=== PATIENT | female | born 1985 | race Caucasian/White ===

== ENCOUNTER 2016-11-26 22:25 | Emergency (ER) | payer OTHER ==
[2016-11-26 23:59] VITALS: BP 127/86
--- NOTE | 2016-11-27 00:08 | Emergency Department Report ---
HPI - General Chief Complaint: Extremity Problem,Nontraumatic Time Seen by Provider: 11/27/16 00:06 - [facility] HPI: Patient is a 31-year-old female who presents to ED complaining of left arm pain 1 day. Patient states earlier today she began to feel sharp tingling pain on her anterior proximal arm. Patient states pain was radiating down her hand and fell at the palm of her hands. Patient states no prior injuries trauma or fall to the arm. Patient states certain movements elicits the pain. Patient states she has no pain at the moment. Patient also mentioned she started working out last week she states she worked out for about 3 or 4 days. Patient denies fevers/nausea/vomiting/headache/chills/abdominal pain/shortness of breath/chest pain/headache. ED Past Medical Hx - Past Medical History Previous Medical History?: Yes Additional medical history: Eye issue. Low back pain - Surgical History Past Surgical History?: No - Social History Smoking Status: Former Smoker Substance Use Type: Alcohol - Medications Home Medications: Home Medications Medication Instructions Recorded Confirmed Last Taken Type Cyclobenzaprine HCl [Flexeril 5 MG 5 mg PO TID #20 tab 11/27/16 Unknown Rx TAB] Ibuprofen [Motrin] 800 mg PO Q8HR PRN #30 tablet 11/27/16 Unknown Rx ED Review of Systems ROS: Stated complaint: L ARM PAIN Other details as noted in HPI Constitutional: denies: chills, fever Eyes: denies: eye pain, eye discharge, vision change ENT: denies: ear pain, throat pain, dental pain, hearing loss, epistaxis Respiratory: denies: cough, shortness of breath, wheezing Cardiovascular: denies: chest pain, palpitations Endocrine: no symptoms reported Gastrointestinal: denies: abdominal pain, nausea, vomiting, diarrhea, constipation Genitourinary: denies: urgency, dysuria, discharge Musculoskeletal: denies: back pain, joint swelling, arthralgia Skin: denies: rash, lesions Neurological: denies: headache, weakness, paresthesias, confusion Psychiatric: denies: anxiety, depression Hematological/Lymphatic: denies: easy bleeding, easy bruising, swollen glands Physical Exam - Physical Exam Vital Signs: Vital Signs 11/26/16 11/26/16 11/26/16 22:35 23:08 23:59 Temperature 98.5 F Pulse Rate 76 74 Respiratory 18 16 Rate Blood Pressure 150/124 131/84 127/86 [Right] O2 Sat by Pulse 99 95 Oximetry Physical Exam: GENERAL: Alert and oriented x3, no apparent distress, Normal Gait, atraumatic. HEAD: Head is normocephalic and a-traumatic. EYES: Extra ocular muscles are intact. Pupils are equal, round, and reactive to light and accommodation. EARS: symetrical, atraumatic, non tender, ear canal clear and moderate cerumen, tympanic membrance non inflamed. gross auditory nml bilaterally. NOSE: Nose symetrical, Nontender,Nares appeared normal. MOUTH:Mouth is well hydrated and without lesions. Tonsils nonerythematous or swollen, Uvula midline, Tongue not elevated. Mucous membranes are moist. Posterior pharynx clear, no exudate or lesions. Patent airways. NECK: Supple. Non edematous, No carotid bruits. No lymphadenopathy or thyromegaly. LUNGS: Symetrical with respiration, No wheezing, no rales or crackles, CTAB. BREAST: Symetrical, Supple bilaterally, No Masses, lumps, lesions, ulcerations. HEART: S1, S2 present, regular rate and rhythm without murmur, no rubs, no gallops. ABDOMEN: No organomegaly was noted,Positive bowel sounds, soft, and non- distended. . Nontender to palpation on all Quadrants, NO CVA tenderness. EXTREMITIES/MUSCULOSKELETAL: No cyanosis, clubbing, rash, lesions or edema. Full ROM bilaterally. UE/LE Pulses 2+ bilaterally. LE and UE 5+ strength bilaterally, left arm nontender to palpation. NEUROLOGIC: No focal Deficit, Cranial nerves II through XII are grossly intact. No loss of sensation, No facial droop. SKIN: Warm and dry, No lesions, No ulceration or induration present. ED Course Vital Signs 11/26/16 11/26/16 11/26/16 22:35 23:08 23:59 Temperature 98.5 F Pulse Rate 76 74 Respiratory 18 16 Rate Blood Pressure 150/124 131/84 127/86 [Right] O2 Sat by Pulse 99 95 Oximetry ED Medical Decision Making - Medical Decision Making 31-year-old presents with nonspecific left arm pain. Vital signs stable. Alert and oriented 3. SHe is in no distress. Discussed with patient straining muscle versus radiculopathic pain. Blood pressure taken prior to discharge 127/86. Discussed the patient will follow-up with her physician as referred. Discusses pain continues to follow up with neurologist as referred. Discussed stretching before and after all her accounts for exercises. Critical care attestation.: If time is entered above; I have spent that time in minutes in the direct care of this critically ill patient, excluding procedure time. ED Disposition Clinical Impression: Strain of unspecified muscles, fascia and tendons at forearm level, left arm, initial encounter, Radiculopathy of arm Disposition: DISCHARGED TO HOME OR SELFCARE Is pt being admited?: No Does the pt Need Aspirin: No Condition: Stable Instructions: Muscle Strain (ED) Additional Instructions: Follow-up a primary care physician for assessment for blood pressure. Decrease salt intake. Stretch before and after all workouts Prescriptions: Cyclobenzaprine HCl [Flexeril 5 MG TAB] 5 mg PO TID #20 tab Ibuprofen [Motrin] 800 mg PO Q8HR PRN #30 tablet PRN Reason: Pain Referrals: PRIMARY CAREMD [Primary Care Provider] - 3-5 Days MAYTE ANN DO [Staff Physician] - 3-5 Days GALLITO GRAY MD [Staff Physician] - 3-5 Days CARLITO GOODMAN MD [Staff Physician] - 3-5 Days PETER CEDEÑO MD [Staff Physician] - 3-5 Days MICAELA ALMANZA DO [Staff Physician] - 3-5 Days RONDA DUNN MD [Staff Physician] - 3-5 Days ESHA GÓMEZ MD [Referring] - 3-5 Days Forms: Work/School Release Form(ED) Time of Disposition: 00:49
== END 2016-11-27 01:05 | disposition home or self-care (01) ==
LOC: ED 22:25
DX: S56.912A Strain of unspecified muscles, fascia and tendons at forearm level, left arm, initial encounter (principal); M54.10 Radiculopathy, site unspecified; Z87.891 Personal history of nicotine dependence; W18.30XA Fall on same level, unspecified, initial encounter; Y93.9 Activity, unspecified; Y92.9 Unspecified place or not applicable; Y99.9 Unspecified external cause status
CPT/HCPCS: 99282

== ENCOUNTER 2018-02-05 21:16 | Emergency (ER) | payer OTHER ==
[2018-02-05 21:45] VITALS: BP 118/68
[2018-02-05 22:11] LABS: Hematocrit 37.2 % (30.3-42.9); Hemoglobin 12.7 gm/dl (10.1-14.3); Mean Corpuscular HGB Conc 34 % (30-34); Mean Corpuscular Hemoglobin 30 pg (28-32); Mean Corpuscular Volume 87 fl (79-97); Platelet Count 219 K/mm3 (140-440); Red Blood Count 4.29 M/mm3 (3.65-5.03); Red Cell Distribution Width 13.4 % (13.2-15.2)
[2018-02-05 22:50] LABS: Bilirubin,Urine NEG (Negative); Blood,Urine NEG (Negative); Color,Urine Yellow (Yellow); Mucus,Urine FEW /HPF; Protein,Urine <15 mg/dL mg/dL (Negative); Urobilinogen,Urine < 2.0 mg/dL (<2.0)
[2018-02-05 23:00] LABS: BUN/Creatinine Ratio 40; Blood Urea Nitrogen 16 mg/dL (7-17); Calcium 9.4 mg/dL (8.4-10.2); Hemolysis Index 14
[2018-02-06] MEDS ORDERED: NACL 0.9% 1000 ML 1,000 ML IV ONE (03:36)
--- NOTE | 2018-02-06 04:32 | Emergency Department Report ---
ED Syncope HPI - General Chief Complaint: Dizziness Stated Complaint: DIZZY,BLURRED VISION Source: patient Exam Limitations: no limitations - History of Present Illness Initial Comments: 32-year-old female currently approximately 14 weeks presents to the hospital after near syncopal episode or patient was standing in line at the [employer] store, she began by a headache, had a frontal headache, blurry vision, like she was going to pass out. Patient sat down injuring ordered and within 15 -20 minutes she felt better. Patient had a mild recurrent frontal headache which has since resolved. While waiting in the ED to be seen patient denies chest pain, shortness of breath, nausea, vomiting, diarrhea, fever, neck pain, recent trauma or persistent headache. 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 No dysuria reported - Related Data Allergies/Adverse Reactions: Allergies No Known Allergies Allergy (Verified 10/30/15 13:59) Home Medications: Ambulatory Orders Cyclobenzaprine HCl [Flexeril 5 MG TAB] 5 mg PO TID #20 tab 11/27/16 Ibuprofen [Motrin] 800 mg PO Q8HR PRN #30 tablet 11/27/16 Nitrofurantoin [place]/M-Cryst [Macrobid CAP] 100 mg PO Q12HR #14 capsule 02/06/18 ED Review of Systems ROS: Stated complaint: DIZZY,BLURRED VISION Other details as noted in HPI Comment: All other systems reviewed and negative ED Past Medical Hx - Past Medical History Previous Medical History?: Yes Additional medical history: Eye issue, 14 weeks . Low back pain - Surgical History Past Surgical History?: No - Social History Smoking Status: Never Smoker - Medications Home Medications: Home Medications Medication Instructions Recorded Confirmed Last Taken Type Cyclobenzaprine HCl [Flexeril 5 MG 5 mg PO TID #20 tab 11/27/16 Unknown Rx TAB] Ibuprofen [Motrin] 800 mg PO Q8HR PRN #30 tablet 11/27/16 Unknown Rx Nitrofurantoin [place]/M-Cryst 100 mg PO Q12HR #14 capsule 02/06/18 Unknown Rx [Macrobid CAP] ED Physical Exam - General Limitations: No Limitations - Other Other exam information: General: No limitations, patient is alert in no acute distress Head exam: Atraumatic, normocephalic Eyes exam: Normal appearance, pupils equal reactive to light, extraocular movements intact ENT: Moist mucous membrane, normal oropharynx Neck exam: Normal inspection, full range of motion, no meningismus nontender Respiratory exam: Clear to auscultation bilateral, no wheezes, rales, crackles Cardiovascular: Normal rate and rhythm, normal heart sounds Abdomen: Soft, nondistended, and nontender, with normal bowel sounds, no rebound, or guarding Extremity: Full range of motion normal inspection no deformity Back: Normal Inspection, full range of motion, no tenderness Neurologic: Alert, oriented x3, cranial nerves intact, no motor or sensory deficit Psychiatric: normal affect, normal mood Skin: Warm, dry, intact ED Course Vital Signs 02/05/18 02/06/18 21:37 03:27 Temperature 98.4 F Pulse Rate 82 Respiratory 20 16 Rate Blood Pressure 118/68 O2 Sat by Pulse 100 100 Oximetry ED Medical Decision Making - Lab Data Result diagrams: 02/05/18 21:55 02/05/18 21:55 Lab Results 02/05/18 02/05/18 02/05/18 Range/Units 21:55 21:55 21:55 WBC 12.1 H (4.5-11.0) K/mm3 RBC 4.29 (3.65-5.03) M/mm3 Hgb 12.7 (10.1-14.3) gm/dl Hct 37.2 (30.3-42.9) % MCV 87 (79-97) fl MCH 30 (28-32) pg MCHC 34 (30-34) % RDW 13.4 (13.2-15.2) % Plt Count 219 (140-440) K/mm3 Sodium 132 L (137-145) mmol/L Potassium 4.1 (3.6-5.0) mmol/L Chloride 94.6 L (98-107) mmol/L Carbon Dioxide 23 (22-30) mmol/L Anion Gap 19 mmol/L BUN 16 (7-17) mg/dL Creatinine 0.4 L (0.7-1.2) mg/dL Estimated GFR > 60 ml/min BUN/Creatinine Ratio 40 % Glucose 85 (65-100) mg/dL Calcium 9.4 (8.4-10.2) mg/dL HCG, Quant 99342 H (0-4) mIU/mL Urine Color (Yellow) Urine Turbidity (Clear) Urine pH (5.0-7.0) Ur Specific [place] (1.003-1.030) Urine Protein (Negative) mg/dL Urine Glucose (UA) (Negative) mg/dL Urine Ketones (Negative) mg/dL Urine Blood (Negative) Urine Nitrite (Negative) Urine Bilirubin (Negative) Urine Urobilinogen (<2.0) mg/dL Ur Leukocyte Esterase (Negative) Urine WBC (Auto) (0.0-6.0) /HPF Urine RBC (Auto) (0.0-6.0) /HPF U Epithel Cells (Auto) (0-13.0) /HPF Urine Mucus /HPF 02/05/18 Range/Units 22:29 WBC (4.5-11.0) K/mm3 RBC (3.65-5.03) M/mm3 Hgb (10.1-14.3) gm/dl Hct (30.3-42.9) % MCV (79-97) fl MCH (28-32) pg MCHC (30-34) % RDW (13.2-15.2) % Plt Count (140-440) K/mm3 Sodium (137-145) mmol/L Potassium (3.6-5.0) mmol/L Chloride (98-107) mmol/L Carbon Dioxide (22-30) mmol/L Anion Gap mmol/L BUN (7-17) mg/dL Creatinine (0.7-1.2) mg/dL Estimated GFR ml/min BUN/Creatinine Ratio % Glucose (65-100) mg/dL Calcium (8.4-10.2) mg/dL HCG, Quant (0-4) mIU/mL Urine Color Yellow (Yellow) Urine Turbidity Clear (Clear) Urine pH 5.0 (5.0-7.0) Ur Specific [place] 1.030 (1.003-1.030) Urine Protein <15 mg/dl (Negative) mg/dL Urine Glucose (UA) 50 (Negative) mg/dL Urine Ketones Neg (Negative) mg/dL Urine Blood Neg (Negative) Urine Nitrite Neg (Negative) Urine Bilirubin Neg (Negative) Urine Urobilinogen < 2.0 (<2.0) mg/dL Ur Leukocyte Esterase Tr (Negative) Urine WBC (Auto) 7.0 H (0.0-6.0) /HPF Urine RBC (Auto) 2.0 (0.0-6.0) /HPF U Epithel Cells (Auto) 5.0 (0-13.0) /HPF Urine Mucus Few /HPF - EKG Data -: EKG Interpreted by Me EKG shows normal: sinus rhythm, axis (72), QRS complexes (80), ST-T waves (no stemi/t inv) Rate: normal (90) - Medical Decision Making Near syncopal episode associated headache Patient states she has been pain-free while waiting to be seen in ED and also feels better Orthostatics were negative but Hi specific gravity on urine Patient tolerating by mouth Patient refused IV hydration She states she will hydrate orally Mild hyponatermia/low chloride noted (informed to drink pedialyte) Patient also declines offer for CT scan (head) since she is pain-free 7 white cells and a urine and will be covered with antibiotic to prevent labor associated UTI - Differential Diagnosis dehydration, anemia, vasovagal, ICH, infection, arrhythmia, PE Critical Care Time: No Critical care attestation.: If time is entered above; I have spent that time in minutes in the direct care of this critically ill patient, excluding procedure time. ED Disposition Clinical Impression: Near syncope, Dehydration, , Urine WBC increased Disposition: DC-01 TO HOME OR SELFCARE Is pt being admited?: No Does the pt Need Aspirin: No Condition: Stable Instructions: Near Syncope (ED), Dehydration (ED), Urinary Tract Infection in Women (ED) Additional Instructions: Take the medication as prescribed. Follow-up with your doctor. Return if symptoms worsen. Continue to drink plenty of fluids including Pedialyte for electrolyte replenishment. Prescriptions: Nitrofurantoin [place]/M-Cryst [Macrobid CAP] 100 mg PO Q12HR #14 capsule Referrals: TONEY SHULTZ MD [Primary Care Provider] - 2-3 Days Time of Disposition: 04:34
== END 2018-02-06 04:55 | disposition home or self-care (01) ==
LOC: ED 21:16
DX: O26.892 Other specified pregnancy related conditions, second trimester (principal); R55 Syncope and collapse; E86.0 Dehydration; Z3A.14 14 weeks gestation of pregnancy
CPT/HCPCS: 36415; 80048; 81001; 84702; 85027; 93005; 93010; 99283

== ENCOUNTER 2018-02-13 19:11 | Emergency (ER) | payer OTHER ==
[2018-02-13 20:06] VITALS: BP 106/62
[2018-02-13 20:44] LABS: Amorphous Crystals,Urine Few; Bacteria,Urine 2+ /HPF (Negative); Bilirubin,Urine NEG (Negative); Blood,Urine NEG (Negative); Color,Urine Yellow (Yellow); Protein,Urine <15 mg/dL mg/dL (Negative); Urobilinogen,Urine < 2.0 mg/dL (<2.0)
[2018-02-13] MEDS ORDERED: TYLENOL PO ONE (23:38)
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
== END 2018-02-14 01:45 | disposition home or self-care (01) ==
LOC: ED 19:11
DX: O9A.211 Injury, poisoning and certain other consequences of external causes complicating pregnancy, first trimester (principal); M54.5 Low back pain; R10.9 Unspecified abdominal pain; Z3A.14 14 weeks gestation of pregnancy; V87.7XXA Person injured in collision between other specified motor vehicles (traffic), initial encounter; Y93.89 Activity, other specified; Y99.8 Other external cause status; Y92.410 Unspecified street and highway as the place of occurrence of the external cause
CPT/HCPCS: 81001; 86850; 86900; 86901; 99283